=== PATIENT | female | born 1945 | race Caucasian/White ===

== ENCOUNTER 2017-12-31 07:15 | Day surgery (SDC) | payer MEDICARE, OTHER ==
[2017-12-24 09:21] VITALS: BMI 32.3
[2017-12-31] MEDS ORDERED: Midazolam 2 MG/2 ML VIAL ONE (09:01)
[2017-12-31] MEDS ORDERED: Propofol 10 mg/ml Inj (20 ML) ONE (09:01)
[2017-12-31] MEDS ORDERED: ceFAZolin IV 2 gm in Dextrose 2 GM/50 ML BAG IVPB ONE (09:03)
[2017-12-31] MEDS ORDERED: Bupivacaine HCl 0.25% PF (10 ml) Inj ONE ×2 (09:03→09:58)
[2017-12-31] MEDS ORDERED: Phenylephrine 10 mg/ml Inj ONE (09:04)
[2017-12-31] MEDS ORDERED: Lidocaine/Epi 1% 1:100000 20 ML IJ ONE (09:15)
[2017-12-31] MEDS ORDERED: Sodium Chloride 0.9% 20 ML IV ONE (09:58)
[2017-12-31] MEDS ORDERED: Neostigmine Methylsulfate 3mg/3ml Syringe IV ONE (10:22)
[2017-12-31] MEDS: HYDROmorphone 0.5 mg/0.5 ml ISec IVP PRN ×3 (10:59→11:57)
--- NOTE | 2017-12-31 11:01 | PCM.SURG1 ---
Surgeon's Initial Post Op Note - Surgeon's Notes Surgeon: Antonio Licensed Appraiser: [id number] Type of Anesthesia: General Endo, Block Regional Pre-Operative Diagnosis: Cholelithiasis Operative Findings: Cholelithiasis Post-Operative Diagnosis: Cholelithiasis Operation Performed: Robotic assisted lap cholecystectomy. TAP block Specimen/Specimens Removed: gallbladder Estimated Blood Loss: EBL {In ML}: 10 Blood Products Given: N/A Drains Used: No Drains Post-Op Condition: Good Date of Surgery/Procedure: 12/31/17 Time of Surgery/Procedure: 08:00
[2017-12-31] MEDS ORDERED: Oxycodone/Acetaminophen 5/325 mg Tab PO ONE (11:07)
[2017-12-31] MEDS ORDERED: Lactated Ringer's 1,000 ML IV ONE (11:24)
[2017-12-31 13:04] VITALS: BP 130/62; PULSE 63; RESP 18; TEMP 98; O2SAT 100
--- NOTE | 2018-01-05 02:24 | OP ---
PROCEDURE DATE: 12/31/2017 PREOPERATIVE DIAGNOSES: 1. Chronic cholecystitis. 2. Cholelithiasis. 3. Possible postinfectious adhesion. POSTOPERATIVE DIAGNOSES: 1. Chronic cholecystitis. 2. Cholelithiasis. 3. Extensive postinfectious adhesion. PROCEDURES: 1. Robotic-assisted cholecystectomy. 2. Robotic lysis of adhesion. 3. Laparoscopic bilateral TAP block placement. SURGEON: Zuhair Alvarez MD REGIONAL FACILITIES SPECIALIST: FLAKITA Maxwell TYPE OF ANESTHESIA: General endotracheal tube anesthesia. ESTIMATED BLOOD LOSS: Around 10 mL. DRAIN: None. PATHOLOGY: Gallbladder with the gallstone was sent for the pathology. COMPLICATIONS: None. INTRAOPERATIVE FINDINGS: The patient had changes of chronic cholecystitis and cholelithiasis and the patient also had a postinfectious adhesion of the omentum and the duodenum through the infundibulum as well as to the Calot's triangle and lysis of adhesion was done. DESCRIPTION OF PROCEDURE: On intraoperative steps, this is a 72-year-old female, who was diagnosed with chronic cholecystitis and cholelithiasis and the patient was consented for robotic cholecystectomy, possible open, with a TAP block. The patient was brought to the OR, placed supine on the operating table. After induction of the anesthesia, abdomen was prepped and draped in the usual sterile fashion. A supraumbilical incision was made. After incising skin and subcutaneous tissue, robotic camera port was placed. Pneumoperitoneum was created and three 8-mm ports were placed in the upper abdomen. The robot was brought in. Camera arm as well as arm 1 and arm 2 were docked and the first lysis of adhesion was done of the omentum as well as the gallbladder was identified. The gallbladder was retracted cranially. The duodenum was also firmly adhesed and the lysis of adhesion was done, and the Calot's triangle dissection was done. Cystic duct and cystic artery were identified and clipped at 3 places and cut in between 2 clips nearby gallbladder. Intraoperative Firefly was used to confirm the anatomy and the gallbladder was now dissected free from the gallbladder fossa, taken in an EndoCatch bag, taken out through the umbilical port site and sent off the table for the Pathology. Now, the laparoscopic bilateral TAP block was given in the transverse abdominis muscles plane and 30:30 mL of Marcaine was injected on both sides. After TAP block, all the ports were taken out under vision and pneumoperitoneum was deflated. The umbilical port site was closed in 2 layers, the fascia with 0-Vicryl interrupted suture, skin with a 4-0 Monocryl. Dry sterile dressing was applied. The patient tolerated the procedure well. Count of the instrument and gauze was correct. There was no apparent complication. Zuhair Alvarez MD
== END 2017-12-31 13:34 | disposition home or self-care (01) ==
LOC: C.SDS 07:15
PROVIDERS: ATTEND Surgery Surgical Critical Care
DX: K80.10 Calculus of gallbladder with chronic cholecystitis without obstruction (principal); E11.9 Type 2 diabetes mellitus without complications
CPT/HCPCS: 47562; 64486; 82948; 88304; J0690; J1170; J2001; J2250; J2370; J2704; J2710; J3010; J7030; J7120